=== PATIENT | female | born 1940 | race Caucasian/White ===

== ENCOUNTER → 2019-05-30 | Outpatient (CLI) | payer OTHER | END | disposition home or self-care (01) | LOC: RAH 13:04 | PROVIDERS: ATTEND Internal Medicine Cardiovascular Disease | DX: Z13.6 Encounter for screening for cardiovascular disorders (principal) | CPT/HCPCS: 75571 ==

== ENCOUNTER → 2024-11-27 | Outpatient (CLI) | payer MEDICARE ==
--- NOTE | 2024-11-27 10:45 | HMCIMG ---
US RENAL SONOGRAM REASON: UTI, UNSPECIFIED COMPARISON: None TECHNIQUE: Renal and bladder sonogram was performed. FINDINGS: Right kidney is 7.0 x 2.8 x 3.7 cm, left 7.7 x 4.7 x 3.7 cm. Kidneys are small with mildly echogenic cortex consistent with a component of chronic renal disease. There is no mass, stone or hydronephrosis. Urinary bladder was nondistended and not well seen. IMPRESSION: 1. Echogenic kidneys consistent with chronic renal disease, there is only mild cortical thinning. 2. Urinary bladder not well seen.
== END | disposition home or self-care (01) ==
LOC: RAH 08:20
PROVIDERS: ATTEND Urology
DX: N39.0 Urinary tract infection, site not specified (principal)
CPT/HCPCS: 76770